=== PATIENT | female | born 1990 | race Caucasian/White ===

== ENCOUNTER 2017-06-20 16:55 | Emergency (ER) | payer SELFPAY ==
[2017-06-20 19:54] LABS: HCG URINE NEGATIVE (NEGATIVE)
[2017-06-20 20:33] LABS: APPEARANCE CLEAR (CLEAR); BILIRUBIN NEGATIVE (NEGATIVE); COLOR YELLOW (YELLOW); GLUCOSE NEGATIVE (NEGATIVE); KETONE MODERATE mg/dL (NEGATIVE); LEUKOCYTE ESTERASE NEGATIVE (NEGATIVE); NITRITE NEGATIVE (NEGATIVE); PROTEIN NEGATIVE (NEGATIVE); SPECIFIC GRAVITY 1.015 (1.005-1.020); UROBILINOGEN NORMAL (NORMAL)
== END 2017-06-20 20:20 | disposition home or self-care (01) ==
LOC: D.ER 16:55
PROVIDERS: Emergency Medicine
DX: K29.00 Acute gastritis without bleeding (principal)